=== PATIENT | female | born 1980 | race Caucasian/White ===

== ENCOUNTER 2020-10-13 08:32 | Emergency (ER) | payer OTHER, SELFPAY ==
--- NOTE | 2020-10-13 08:33 | ED.FALL ---
HPI - Fall General Chief Complaint: Fall Stated Complaint: fell on ice yesterday Time Seen by Provider: 10/13/20 08:33 Source: patient Mode of arrival: Ambulatory Limitations: no limitations History of Present Illness HPI Narrative: 39F nonsmoker with noncontributory medical history presents with a chief complaint of left side rib pain after a ground level fall yesterday. She was walking on the ice when she slipped and fell onto her left side. She denies any head, neck or back pain. She denies any loss of consciousness and has full recall. She felt a crunch in her lateral ribs and now has sharp and stabbing pain with motion, deep breath or use of her left arm. She denies any significant shortness of breath or hemoptysis. She has had no nausea, vomiting or diarrhea. She took a Tylenol with minimal relief MD complaint: fall Onset (ago): day(s) Fall from: standing Fall witnessed: no Place fall occurred: street Loss of consciousness: none Prolonged down time: no Symptoms prior to fall: none Context: tripped/slipped Location of injury: chest Severity: moderate Quality: sharp Related Data Previous Rx's Medication Instructions Recorded hydrocodone-acetaminophen 1 tab PO Q4-6H PRN #10 tab 10/13/20 Allergies Allergy/AdvReac Type Severity Reaction Status Date / Time codeine Allergy Unknown Verified 10/13/20 08:46 Review of Systems Constitutional Constitutional: Denies chills, Denies fatigue, Denies fever(s), Denies frequent falls, Denies lethargy and Denies weakness Eyes Eyes: Denies change in vision, Denies eye discharge, Denies irritation and Denies loss of vision ENT Ears, Nose, Mouth, and Throat: Denies change in voice, Denies dizziness, Denies neck pain, Denies sore throat and Denies throat swelling Cardiovascular Cardiovascular: Denies chest pain, Denies irregular heart rhythm, Denies lightheadedness, Denies palpitations, Denies dyspnea, Denies dyspnea on exertion and Denies orthopnea Comments: lateral chest wall pain Respiratory Respiratory: Denies cough, Denies dyspnea, Denies dyspnea on exertion and Denies wheezing Gastrointestinal Gastrointestinal: Denies abdominal pain, Denies change in bowel habits, Denies diarrhea, Denies nausea and Denies vomiting Musculoskeletal Musculoskeletal: Denies neck pain and Denies numbness Integumentary/Breasts Skin/Breast: Denies pruritus, Denies erythema, Denies rash and Denies wounds Neurologic Neurologic: Denies behavioral changes, Denies confusion, Denies dizziness, Denies frequent falls, Denies loss of vision, Denies numbness and Denies weakness Psychiatric Psychiatric: Denies anxiety, Denies behavioral changes, Denies confusion, Denies depression, Denies homicidal ideation and Denies suicidal ideation Endocrine Endocrine: Denies fatigue, Denies flushing and Denies palpitations Hematologic/Lymphatic Hematologic/Lymphatic: Denies easy bruising Allergic/Immunologic Allergic/Immunologic: Denies urticaria, Denies throat swelling and Denies wheezing Patient History Social History Smoking Status: Never smoker Smoking Status: Never smoker alcohol intake frequency: 0-2 drinks per day Substance Use Type: does not use Exam Narrative Exam Narrative: GENERAL: [39] year old patient appears stated age. Well-nourished, well-developed patient, in mild distress. GCS 15, tearful, anxious HEAD: Atraumatic. Normocephalic. EYES: Pupils equal round and reactive. No hyphema Extraocular motions intact. No scleral icterus. No injection or drainage. ENT: Nose without bleeding, purulent drainage. No nasal septal hematoma or hemotympanum Throat without erythema, tonsillar hypertrophy or exudate. Airway patent. NECK: Trachea midline. Non tender, no step-offs or crepitance CARDIOVASCULAR: Regular rate and rhythm without murmurs, gallops, or rubs. RESPIRATORY: Clear to auscultation. Breath sounds equal bilaterally. No wheezes, rales, or rhonchi. Severe tenderness to palpation of lateral ribs, no crepitance GASTROINTESTINAL: Abdomen soft, non-tender, nondistended. EXTREMITIES: No edema or joint tenderness. BACK: Nontender without deformity or crepitance. No flank tenderness. NEURO: AOx3. SKIN: No rash or erythema of visible areas Initial Vital Signs Initial Vital Signs: Vital Signs Temperature 97.8 F 10/13/20 08:41 Pulse Rate 98 H 10/13/20 08:41 Respiratory Rate 18 10/13/20 08:41 Blood Pressure 147/91 H 10/13/20 08:41 Pulse Oximetry 98 10/13/20 08:41 Course Orders Ordered: ED Orders 10/13/20 08:38 XR ribs LT min 3V w CXR1V Stat Discontinued Medications Ketorolac Tromethamine (Ketorolac 60 Mg/2 Ml Vial) 30 mg IM NOW ONE Stop: 10/13/20 08:43 Last Admin: 10/13/20 08:47 Dose: 30 mg Documented by: Vital Signs Vital signs: Vital Signs - 8 hr 10/13/20 08:41 Temperature 97.8 F Pulse Rate 98 H Respiratory Rate 18 Blood Pressure 147/91 H Pulse Oximetry 98 MDM - Fall Imaging Data Chest x-ray: Radiologist's Impression: [address] [id number] ReportSigned Patient: Alyssa Manzano LMR#: [id number]: 1980Acct:[id number]/Sex: 39 / FDate of Service: 10/13/20Loc: EDAccession Number: [id number] Procedure: XR ribs LT min 3V w CXR1V Ordering Provider: Sachin Esparza D.O. PROCEDURE: XR RIBS LT MIN 3V W CXR1V INDICATIONS: fall on ice with left lateral rib pain TECHNIQUE: 2 views of the left ribs were acquired, along with a single view chest. COMPARISON: None. FINDINGS: Surgical changes and devices: None. Bones and chest wall: No fractures or dislocations. No suspicious bony lesions. Overlying soft tissues appear unremarkable. Lungs and pleura: No pleural effusions or pneumothorax. Lungs appear clear. Mediastinum: Mediastinal contours appear normal. Heart size is normal. IMPRESSION: No fracture found, no pneumothorax identified. If unusual symptoms persist follow-up delayed plain films may be warranted. Initial plain film detection of nondisplaced rib fractures is relatively insensitive, and delayed plain films may detect fracture not previously identified. Dictated by: Jose Francisco Sparks M.D. on 10/13/2020 at 9:18 Approved by: Jose Francisco Sparks M.D. on 10/13/2020 at 9:21 Discharge Plan Departure Patient Disposition: Home Clinical Impression: Contusion of rib Qualifiers: Encounter type: initial encounter Laterality: left Qualified Code(s): S20.212A - Contusion of left front wall of thorax, initial encounter Instructions: How to Prevent Falls Activity Restrictions/Additional Instructions: *You have been diagnosed with [fall with left-sided rib contusion. No evidence of a fracture or puncture lung] *What to do: *Take medications as directed: Pain medication sent to [facility] at your request *Follow up with your primary care provider in 2-3 days, call for an appointment. Let them know you were seen in the Emergency Department and that we ask that you be seen in follow up *Return to ER if you should have any new, worsening or concerning symptoms, such as [increasing pain, shortness of breath or other bothersome symptoms Radiographic study has been interpreted by an emergency physician. The official diagnosis by radiology will be performed within the next 24 hours and should there be any change in outcome we will notify you of how to proceed. You have been prescribed narcotic medications. While on these medications you cannot drive or operate heavy machinery. Additionally you cannot sign legal documents or perform any duties such as this. 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 Please understand that we cannot provide further refills of narcotics or controlled substances through the ED and your pain management will need to be through your Primary Care Provider] Prescriptions: New hydrocodone-acetaminophen 5-325 mg tablet 1 tab PO Q4-6H PRN (Reason: pain) Qty: 10 RF: 0
--- NOTE | 2020-10-13 08:38 | DI.RAD.S_ITS ---
PROCEDURE: XR RIBS LT MIN 3V W CXR1V INDICATIONS: fall on ice with left lateral rib pain TECHNIQUE: 2 views of the left ribs were acquired, along with a single view chest. COMPARISON: None. FINDINGS: Surgical changes and devices: None. Bones and chest wall: No fractures or dislocations. No suspicious bony lesions. Overlying soft tissues appear unremarkable. Lungs and pleura: No pleural effusions or pneumothorax. Lungs appear clear. Mediastinum: Mediastinal contours appear normal. Heart size is normal. IMPRESSION: No fracture found, no pneumothorax identified. If unusual symptoms persist follow-up delayed plain films may be warranted. Initial plain film detection of nondisplaced rib fractures is relatively insensitive, and delayed plain films may detect fracture not previously identified. Dictated by: Jose Francisco Sparks M.D. on 10/13/2020 at 9:18 Approved by: Jose Francisco Sparks M.D. on 10/13/2020 at 9:21
[2020-10-13 08:41] VITALS: BP 147/91; PULSE 98; RESP 18; TEMP 36.6; O2SAT 98; BMI 30.7
[2020-10-13] MEDS: KETOROLAC 60 MG/2 ML VIAL 30 MG IM (08:47)
== END 2020-10-13 09:14 | disposition home or self-care (01) ==
LOC: ED 09:12
PROVIDERS: Emergency Provider Emergency Medicine
DX: S20.212A Contusion of left front wall of thorax, initial encounter (principal); W00.0XXA Fall on same level due to ice and snow, initial encounter
CPT/HCPCS: 71101; 96372; 99283; J1885

== ENCOUNTER → 2021-02-02 13:49 | Outpatient (CLI) | payer OTHER, SELFPAY ==
--- NOTE | 2021-02-02 13:50 | DI.US.S_ITS ---
ULTRASOUND OF RIGHT BREAST: 02/02/2021 CLINICAL: Diffuse right breast pain. [facility] and real-time ultrasound of the right breast were performed. Tatum scale images of the real-time examination were reviewed. There is a benign 0.5 cm x 0.8 cm x 0.3 cm oval cyst in the right breast at 11 o'clock middle depth 5 cm from the nipple. This correlates with mammography findings. Color flow imaging demonstrates that there is no vascularity present. IMPRESSION: BENIGN There is no sonographic evidence of malignancy. The 0.5 cm x 0.8 cm x 0.3 cm oval cyst in the right breast is benign. Return to annual mammogram screening schedule is recommended. Clinical follow up for breast rash and pain is recommended. Findings and recommendations were conveyed to the patient at time of exam. This exam was interpreted at Station ID: [id number]. Electronically Signed By: Perlita solano/:02/02/2021 15:44:26 letter sent: Normal Exam Ultrasound BI-RADS: 2 Benign
--- NOTE | 2021-02-02 13:50 | DI.MG.S_ITS ---
BILATERAL DIGITAL DIAGNOSTIC MAMMOGRAM 3D/2D: 02/02/2021 CLINICAL: Baseline exam. Bilateral breast pain and rash. No prior exams were available for comparison. The tissue of both breasts is heterogeneously dense. This may lower the sensitivity of mammography. There is a 9 mm oval equal density asymmetry with a circumscribed margin in the right breast at 11 o'clock anterior depth. No other significant masses, calcifications, or other findings are seen in either breast. Specifically, no finding to explain the patient's inferior bilateral breast rash or pain. IMPRESSION: INCOMPLETE: NEEDS ADDITIONAL IMAGING EVALUATION The 9 mm oval equal density asymmetry in the right breast is indeterminate. An ultrasound is recommended. This was performed immediately following this exam. There is no abnormality seen in either breast to correspond with the pain and rash the inferior aspect. Clinical follow up recommended. This exam was interpreted at Station ID: [id number]. NOTE: For mammograms, a report in lay terms will be sent to the patient. Approximately 15% of breast malignancies will not be visualized mammographically. In the management of a palpable breast mass, a negative mammogram must not discourage biopsy of a clinically suspicious lesion. Electronically Signed By: Perlita solano/:02/02/2021 15:22:07 ACR BI-RADS Category 0: Incomplete [id number]
== END ==
PROVIDERS: PCP Nurse Practitioner Family; Referring Provider Nurse Practitioner Family; Visit Provider Nurse Practitioner Family
DX: R92.8 Other abnormal and inconclusive findings on diagnostic imaging of breast (principal); N64.4 Mastodynia; N60.01 Solitary cyst of right breast; R21 Rash and other nonspecific skin eruption
CPT/HCPCS: 76642; 77066; G0279

== ENCOUNTER 2022-02-18 08:49 | Emergency (ER) | payer OTHER, SELFPAY ==
[2022-02-18 08:59] VITALS: BP 131/99; PULSE 105; RESP 22; TEMP 36.7; O2SAT 97; BMI 30.7
--- NOTE | 2022-02-18 09:42 | ED.SKABFB ---
HPI - Skin/Abscess/Foreign Bdy General Chief complaint: Skin/Abscess/Foreign Body Stated complaint: Left armpit pain- left breast swollen/painful Time Seen by Provider: 02/18/22 09:23 Source: patient Mode of arrival: Ambulatory Limitations: no limitations History of Present Illness HPI narrative: 41-year-old female. In August she had a breast reduction. She did have some complications afterwards consistent with nipple necrosis and also fat necrosis. She had an appointment earlier this week. She stated that everything seemed to be going okay although over the past 24 hours she had noticed some redness around her left breast and pain in her left armpit. No drainage. She sent a picture to her doctor last evening. She stated that he wrote a prescription for antibiotics and sent it to the pharmacy of her choice but she has not picked it up yet. She has had issues with dermatitis in the past and she stated that the doctor thought that that is what was going on which she is unsure. Related Data Previous Rx's Medication Instructions Recorded acyclovir 800 mg tablet 800 mg PO BID PRN cold sores #60 07/14/21 tabs clobetasol 0.05 % topical ointment 1 applic topical BID PRN contact 07/30/21 dermatitis #60 grams fluconazole 150 mg tablet 150 mg PO Q3D PRN yeast infection 07/30/21 (Diflucan) #6 tabs ketoconazole 2 % topical cream 1 applic topical BID #45 grams 07/30/21 tacrolimus 0.1 % topical ointment 1 applic topical BID #60 grams 07/30/21 Allergies Allergy/AdvReac Type Severity Reaction Status Date / Time codeine Allergy Unknown Verified 02/18/22 09:06 colophony Allergy Intermediate contact Uncoded 02/18/22 09:06 dermatitis Review of Systems Constitutional Constitutional: Denies fever(s) Integumentary/Breasts Skin/Breast: Reports system reviewed and no additional complaints, except as documented Hematologic/Lymphatic On Anticoagulants: No Allergic/Immunologic Allergic/Immunologic: Reports system reviewed and no additional complaints, except as documented Patient History Medical History Allergic contact dermatitis Encounter for wellness examination in adult (12/11/20) Intertrigo (02/2020) Social History Smoking Status: Never smoker Smoking Status: Never smoker alcohol intake frequency: a few times a month Substance Use Type: does not use Exam Initial Vital Signs Initial Vital Signs: Vital Signs Temperature 98.1 F 02/18/22 08:59 Pulse Rate 105 H 02/18/22 08:59 Respiratory Rate 22 02/18/22 08:59 Blood Pressure 131/99 H 02/18/22 08:59 Pulse Oximetry 97 02/18/22 08:59 Oxygen Delivery Method 02/18/22 08:59 Const General: cooperative, healthy appearing and comfortable Chest Other: Patient's left breast has redness consistent with cellulitis in the inferior aspect bilaterally. There is no drainage. No breaks in the skin. No induration/abscess felt. No nipple drainage. Skin Other: Large area of redness in the left inferior aspect of the breast consistent with cellulitis. There are no breaks in the skin. No drainage. No indication of fungal infection. Extrem Other: Lymphadenopathy noted in the left armpit. Course Vital Signs Vital signs: Vital Signs - 8 hr 02/18/22 08:59 Temperature 98.1 F Pulse Rate 105 H Respiratory Rate 22 Blood Pressure 131/99 H Pulse Oximetry 97 Oxygen Delivery Method Room Air MDM - Skin/Abscess/Foreign Bdy MDM Narrative Medical decision making narrative: Physical exam today is consistent with cellulitis/mastitis of the left breast. There is no nipple drainage. She is nontoxic appearing. I contacted the [facility] in [place] on [facility] [address]. There is a prescription for Keflex that was sent there by her surgeon. There is also prescription for Diflucan. The current Keflex prescription is only for 3 days. I called in a new prescription for Keflex of 500 mg 4 times a day for 7 days. She can continue the Diflucan as well. The prescription is under the patient's made a name of Cassy Manzano which is her name. Patient was instructed to contact her surgeon for follow-up. She expressed understanding and agreement. Discharge Plan Departure Patient Disposition: Home Clinical Impression: Mastitis Instructions: DI for Mastitis Activity Restrictions/Additional Instructions: There are 2 prescriptions at the [facility] in mouth for any. One of them is for Diflucan the other is for Keflex which is an antibiotic. Please take them as directed. I also recommend you contact the surgeon for a follow-up and return to the emergency department for any new or worsening symptoms. Prescriptions: No Action acyclovir 800 mg tablet 800 mg PO BID PRN (Reason: cold sores) Qty: 60 1RF clobetasol 0.05 % ointment 1 applic topical BID PRN (Reason: contact dermatitis) Qty: 60 1RF Rx Instructions: do not use on mucous membranes or face ketoconazole 2 % cream 1 applic topical BID Qty: 45 2RF fluconazole [Diflucan] 150 mg tablet 150 mg PO Q3D PRN (Reason: yeast infection) Qty: 6 0RF Rx Instructions: take one and then take another one 3 days later for yeast infection flare tacrolimus 0.1 % ointment 1 applic topical BID Qty: 60 0RF Rx Instructions: use on the affected area BID for up to 4 weeks or until clear, during flare Referrals: Tommie Trejo ARNP [Primary Care Provider] -
--- NOTE | 2022-02-18 10:12 | PC.NURSE ---
Lottie Vasquez Rn assisted Dr. Marshall and was in room with pt's exam.
== END 2022-02-18 10:14 | disposition home or self-care (01) ==
PROVIDERS: Emergency Provider Emergency Medicine; PCP Nurse Practitioner Family
DX: N61.0 Mastitis without abscess (principal)
CPT/HCPCS: 99281

== ENCOUNTER → 2022-05-05 14:18 | Outpatient (CLI) | payer OTHER, SELFPAY ==
--- NOTE | 2022-05-05 14:20 | DI.RAD.S_ITS ---
PROCEDURE: XR WRIST RT MIN 3V INDICATIONS: Right wrist injury TECHNIQUE: 4 views of the wrist were acquired. COMPARISON: None. FINDINGS: Bones: No fractures or dislocations. No suspicious bony lesions. Scaphoid view: Scaphoid is intact. Soft tissues: No suspicious soft tissue calcifications. IMPRESSION: No acute wrist fracture or dislocation. No gross soft tissue abnormalities. Dictated by: Jason Kilgore M.D. on 05/05/2022 at 14:52 Approved by: Jason Kilgore M.D. on 05/05/2022 at 14:52
== END ==
PROVIDERS: PCP Nurse Practitioner Family; Referring Provider Registered Nurse; Visit Provider Registered Nurse
DX: M25.531 Pain in right wrist (principal)
CPT/HCPCS: 73110

== ENCOUNTER → 2022-10-29 09:28 | Outpatient (CLI) | payer OTHER, SELFPAY ==
[2022-10-29 12:30] LABS: Urine N gonorrhoeae NOT DETECTED
[2022-10-29 12:35] LABS: Urine Chlamydia NOT DETECTED
== END ==
PROVIDERS: PCP Nurse Practitioner Family; Visit Provider Nurse Practitioner Family
DX: N89.8 Other specified noninflammatory disorders of vagina (principal); N94.9 Unspecified condition associated with female genital organs and menstrual cycle
CPT/HCPCS: 87086; 87210; 87491; 87591

== ENCOUNTER → 2022-10-29 10:23 | Outpatient (CLI) | payer OTHER, SELFPAY ==
[2022-10-29 12:34] LABS: Urine N gonorrhoeae NOT DETECTED
[2022-10-29 12:35] LABS: Urine Chlamydia NOT DETECTED
[2022-10-30 14:08] LABS: HSV 2 IGG AB < 0.91 index (0.00-0.90)
[2022-10-31 03:37] LABS: RPR Screen Non Reactive (Non Reactive)
[2022-11-01 16:30] LABS: Hepatitis B Surface Antigen NEGATIVE s/c (NEGATIVE)
[2022-11-01 16:35] LABS: HIV 1 & 2 Ab/Ag 4th Gen Combo NEGATIVE (NEGATIVE); Hep C Virus Ab w/Reflex Quant NEGATIVE s/c (NEGATIVE)
== END ==
PROVIDERS: PCP Nurse Practitioner Family; Referring Provider Nurse Practitioner Family; Visit Provider Nurse Practitioner Family
DX: N89.8 Other specified noninflammatory disorders of vagina (principal); N94.9 Unspecified condition associated with female genital organs and menstrual cycle
CPT/HCPCS: 36415; 86592; 86695; 86696; 86803; 87086; 87210; 87340; 87389; 87491; 87591

== ENCOUNTER → 2022-12-01 08:16 | Outpatient (CLI) | payer OTHER, SELFPAY ==
[2022-12-01 08:46] LABS: Alanine Aminotransferase 46 IU/L (<35); Alkaline Phosphatase 96 U/L (38-126); Aspartate Aminotransferase 34 IU/L (14-36); Bilirubin Total 0.9 mg/dL (0.2-1.3); Blood Urea Nitrogen 9 mg/dL (7-17); Calcium 8.5 mg/dL (8.4-10.2); Carbon Dioxide 23 mmol/L (22-32); Chloride 104 mmol/L (98-107); Cholesterol 220 mg/dL (140-199); Estimated Glomerular Filt Rate > 60 mL/min (>60); Globulin 3.9 g/dL (1.7-4.1); Glucose 120 mg/dL (70-100); HDL Cholesterol 49 mg/dL (40-60); HEMOLYSIS < 15 (0-50); LDL Cholesterol Calculated 140 mg/dL (<100); Potassium 3.9 mmol/L (3.4-5.1); Sodium 137 mmol/L (137-145); Total Protein 7.9 g/dL (6.3-8.2); Triglycerides 157 mg/dL (35-150)
[2022-12-01 09:42] LABS: Free T3, Triiodothyronine Free 4.07 pg/mL (2.77-5.27)
[2022-12-01 09:44] LABS: Free T4, Direct Thyroxine 0.95 ng/dL (0.78-2.19)
[2022-12-01 09:58] LABS: Thyroid Stimulating Hormone 1.83 uIU/mL (0.47-4.68)
[2022-12-02 06:24] LABS: Labcorp Hemoglobin (Hb) A1c 5.8 % (4.8-5.6)
[2022-12-16 15:51] LABS: Percent Free Testosterone 1.29 % (0.50-2.80); Testosterone Free 0.67 ng/dL (0.10-0.85)
== END ==
PROVIDERS: PCP Family Medicine; Referring Provider Family Medicine; Visit Provider Family Medicine
DX: Z13.220 Encounter for screening for lipoid disorders (principal); E34.9 Endocrine disorder, unspecified; R53.83 Other fatigue; R63.5 Abnormal weight gain
CPT/HCPCS: 36415; 80053; 80061; 83036; 84402; 84403; 84439; 84443; 84481

== ENCOUNTER → 2022-12-06 08:57 | Outpatient (CLI) | payer OTHER, SELFPAY ==
--- NOTE | 2022-12-06 08:59 | DI.US.S_ITS ---
PROCEDURE: US PELVIC COMPLETE INDICATIONS: irregular menses, hx of endo ablation, hx ovarian cysts TECHNIQUE: Real-time scanning was performed of the pelvic organs, with image documentation. Additional endovaginal scanning was necessary due to incomplete visualization of the adnexal and endometrial structures by transabdominal scanning. COMPARISON: US, US PELVIC+TRANSVAG[facility] LTD, 11/17/2016, 23:42. [facility], US, PELVIC COMPLETE, 10/06/2014, 17:43. FINDINGS: Uterus: Uterus is anteverted and normal in size at 7.5 x 3.6 x 4.7 cm. The myometrium is homogeneous. The endometrium measures 3.0 mm combined thickness. Small cystic area within the lower uterine segment adjacent to the internal cervical os of the cervix is present measuring 5 mm with internal rounded echogenic polypoid focus. No internal vascularity. Region of ill-defined hypoechogenicity within the anterior myometrial 1.6 cm which may represent a small intramural fibroid. Ovaries: Ovaries not visualized. No adnexal masses seen. Other: No pathologic free abdominal or pelvic fluid. IMPRESSION: 1. 5 mm cystic focus within the lower uterine segment near the internal cervical os which may represent a small complex nabothian cyst; however endometrial/endocervical polyp cannot be excluded. Recommend short-term follow-up ultrasound in 6 weeks to assess for temporal stability and/or resolution. 2. 1.6 cm possible intramural fibroid. 3. Ovaries are not identified. We strive to produce accurate, complete, and clear reports of imaging services. To assist us in improving patient care, this report was composed using standard report templates and voice recognition software. Therefore, it may contain abnormal punctuation, insertions and/or omissions. Occasional wrong-word or sound-alike substitutions may occur. Though we review the report and make efforts to correct it, we do recommend that the report be read carefully in proper context to recognize any text inaccuracies. Dictated by: Tavo ADAM Interpreted: Nehemiah Hardwick MD on 12/07/2022 at 14:08 Transcribed by: BRUCE on 12/07/2022 at 14:14 Approved by: Nehemiah Hardwick M.D. on 12/07/2022 at 16:36
== END ==
PROVIDERS: PCP Family Medicine; Referring Provider Family Medicine; Visit Provider Family Medicine
DX: N94.9 Unspecified condition associated with female genital organs and menstrual cycle (principal); N83.209 Unspecified ovarian cyst, unspecified side; Z98.890 Other specified postprocedural states
CPT/HCPCS: 76856

== ENCOUNTER → 2023-02-09 13:11 | Outpatient (CLI) | payer OTHER, SELFPAY | PROVIDERS: PCP Family Medicine; Visit Provider Family Medicine | DX: J02.9 Acute pharyngitis, unspecified (principal) | CPT/HCPCS: 87070 ==

== ENCOUNTER → 2023-03-23 11:57 | Outpatient (CLI) | payer OTHER, SELFPAY ==
--- NOTE | 2023-03-23 11:58 | DI.MG.S_ITS ---
BILATERAL DIGITAL DIAGNOSTIC MAMMOGRAM 3D/2D: 03/23/2023 CLINICAL: Pain in the right nipple. Comparison is made to exam dated: 02/02/2021 mammogram - [facility]. Both breasts are heterogeneously dense, which may obscure small masses (category c / 51-75% glandular tissue). There is an asymmetry in the right breast middle depth inferior region seen on the mediolateral view only. There are new grouped calcifications in the left breast central to the nipple middle depth. No other significant masses or calcifications are seen in either breast. IMPRESSION: INCOMPLETE: NEEDS ADDITIONAL IMAGING EVALUATION The asymmetry in the right breast middle depth inferior region seen on the mediolateral oblique view only is indeterminate. An ultrasound is recommended. The new grouped calcifications in the left breast central to the nipple middle depth are probably benign. 6 month mammogram recommended. There is no abnormality seen in the right breast to correspond with the pain in the sub-areolar depth, however, ultrasound is recommended. Patient recently had a 2nd reduction surgery. Post operative changes are present. Based on the Tyrer Cuzick model (a risk assessment model) the patient's lifetime risk is 7.9% and her 10 year risk is 1.2%. According to the ACR, ACS, and NCCN guidelines, an annual breast MRI exam along with mammogram is recommended if the patient's lifetime risk is 20% or greater. This exam was interpreted at Station ID: [id number]. NOTE: For mammograms, a report in lay terms will be sent to the patient. Approximately 15% of breast malignancies will not be visualized mammographically. In the management of a palpable breast mass, a negative mammogram must not discourage biopsy of a clinically suspicious lesion. Electronically Signed By: Mono Omalley M.D. lc/:03/23/2023 13:35:32 ACR BI-RADS Category 0: Incomplete 3340F
--- NOTE | 2023-03-23 11:58 | DI.US.S_ITS ---
PROCEDURE: BREAST RT LIMITED COMPARISON: [facility], BREAST RT LIMITED, 02/02/2021, 14:18. INDICATIONS: Right nipple pain FINDINGS: IMPRESSION: Dictated by: Mono Omalley M.D. on 03/23/2023 at 13:36 Approved by: Mono Omalley M.D. on 03/23/2023 at 13:41
--- NOTE | 2023-03-23 13:05 | DI.US.S_ITS ---
Patient Name: BLAIR JULIAN date: 1980 Sex: F Attending Physician: Allyn Indications: Date: 03/23/2023 13:41 At the request of: BRIDGET PINEDA Procedure: US breast RT limited ULTRASOUND OF RIGHT BREAST AND AXILLA: 03/23/2023 CLINICAL: Focal right breast pain. Comparison is made to exams dated: 03/23/2023 mammogram, 02/02/2021 ultrasound, and 02/02/2021 mammogram - [facility]. Ultrasound of the right breast axilla was performed. There is a 1.1 cm x 0.6 cm x 4 cm oval complex cystic-solid mass in the right breast central to the nipple anterior depth. This correlates with area of clinical concern. Color flow imaging demonstrates that there is vascularity present. There also is a possible 0.8 cm x 0.4 cm x 0.9 cm complicated cyst in the right breast at 5 o'clock middle depth 4 cm from the nipple. This correlates with mammography findings. No significant abnormalities were seen sonographically in the right axilla. IMPRESSION: SUSPICIOUS OF MALIGNANCY The 1.1 cm x 0.6 cm x 4 cm oval complex cystic-solid mass in the right breast central to the nipple anterior depth is suspicious of malignancy. An ultrasound guided biopsy is recommended. This correlates to focal pain. Patient recently had reduction surgery. Differential includes fat necrosis. The possible 0.8 cm x 0.4 cm x 0.9 cm complicated cyst in the right breast at 5 o'clock middle depth is probably benign. Follow-up mammogram and ultrasound in 6 months is recommended. This correlates with mammographic asymmetry. Continued Report - Page 2 of 2 Patient Name: BLAIR JULIAN date: 1980 Sex: F Attending Physician: Allyn Indications: Date: 03/23/2023 13:41 At the request of: BRIDGET PINEDA Procedure: US breast RT limited The left breast grouped calcifications are new from prior imaging, probably benign. A 6 month followup mammogram also recommended. This exam was interpreted at Station ID: [id number]. Electronically Signed By: Mono Omalley M.D. /:03/23/2023 13:41:19 letter sent: Biopsy Required Ultrasound BI-RADS: 4 Suspicious for malignancy
== END ==
PROVIDERS: PCP Family Medicine; Referring Provider Family Medicine; Visit Provider Family Medicine
DX: R92.8 Other abnormal and inconclusive findings on diagnostic imaging of breast (principal); R92.1 Mammographic calcification found on diagnostic imaging of breast; N63.15 Unspecified lump in the right breast, overlapping quadrants; N64.89 Other specified disorders of breast; N64.4 Mastodynia
CPT/HCPCS: 76642; 77066; G0279

== ENCOUNTER → 2023-03-28 10:39 | Outpatient (CLI) | payer OTHER, SELFPAY | PROVIDERS: PCP Family Medicine; Visit Provider Nurse Practitioner Family | DX: R30.0 Dysuria (principal); N89.8 Other specified noninflammatory disorders of vagina | CPT/HCPCS: 87086; 87210 ==

== ENCOUNTER → 2023-04-05 07:39 | Outpatient (CLI) | payer OTHER, SELFPAY ==
--- NOTE | 2023-04-05 | PATH_ITS ---
[facility] Accession Number: [id number] No. of containers..01 Tissue . 01 Material submitted: . breast - RIGHT BREAST MASS RETO . 01 Clinical history: . R92.8 . 01 Diagnosis: Right Breast, Image-Guided Core Biopsy: Breast tissue with old hemorrhage, mixed histiocytic, giant cell, and chronic inflammation, and organizing fat necrosis. Negative for significant atypia, duct hyperplasia, or neoplasia. MRV 04/06/2023 1331 Local . 01 Comment: The findings are not specific, but may represent previous trauma or biopsy site changes. . 01 Electronically signed: . Mariama Angela MD, Pathologist NPI- [id number] . 01 Gross description: . Received one formalin-filled container, labeled with the patient's name and right breast retro CTN. The specimen is received with a plastic filter in container, sample loose in container and consists of multiple yellow-perea to perea-maria pieces of tissue which range in size from 0.3 x 0.2 x 0.2 cm to 1.8 x 0.3 x 0.3 cm. The specimen is entirely submitted in one cassette. Possible collection date and time per requisition: 04/05/2023 at 9:12. Total fixation time: Approximately 18 hours. ([id number]) /FRR 04/06/2023 0331 Local . 01 Pathologist provided ICD-10: R92.8 . 01 CPT . 867293 Specimen Comment: A courtesy copy of this report has been sent to [facility] Performed at: 01 [facility] [address] [place] [address], [place], [place] [id number] MD London Lepe MD Phone: [phone]
--- NOTE | 2023-04-05 07:40 | DI.MG.S_ITS ---
UNILATERAL RIGHT DIGITAL DIAGNOSTIC MAMMOGRAM 3D/2D POST-EXCISIONAL BIOPSY: 04/05/2023 CLINICAL: Post clip. Comparison is made to exams dated: 03/23/2023 ultrasound, 03/23/2023 mammogram, 02/02/2021 ultrasound, and 02/02/2021 mammogram - [facility]. The right breast is heterogeneously dense, which may obscure small masses (category c / 51-75% glandular tissue). There is a marker clip in the appropriate position in the right breast at 12 o'clock in the retroareolar region. This marker clip placement is at the biopsy site. IMPRESSION: POST PROCEDURE MAMMOGRAM FOR MARKER PLACEMENT There was a successful marker clip placement in the right breast in the retroareolar region. Future imaging is recommended as follows: 09/23/2023 mammogram and an ultrasound. Based on the Tyrer Cuzick model (a risk assessment model) the patient's lifetime risk is 7.9% and her 10 year risk is 1.2%. According to the ACR, ACS, and NCCN guidelines, an annual breast MRI exam along with mammogram is recommended if the patient's lifetime risk is 20% or greater. This exam was interpreted at Station ID: [id number]. NOTE: For mammograms, a report in lay terms will be sent to the patient. Approximately 15% of breast malignancies will not be visualized mammographically. In the management of a palpable breast mass, a negative mammogram must not discourage biopsy of a clinically suspicious lesion. Electronically Signed By: Jason Kilgore M.D. jl/:04/05/2023 11:18:57 ACR BI-RADS Category Post-procedure mammogram for marker placement
--- NOTE | 2023-04-05 07:40 | DI.US.S_ITS ---
ULTRASOUND GUIDED BIOPSY RIGHT BREAST USING VACUUM DEVICE WITH MARKING DEVICE INSERTED AND POST DIGITAL MAMMOGRAPHIC IMAGIN04/05/2023 CLINICAL: Right breast mass. PATIENT CONSENT: Risks (minor bleeding, infection, vasovagal reaction and repeat procedure), benefits and alternatives were explained to the patient and written informed consent was obtained. Correlation is made to exams dated: 04/05/2023 mammogram, 03/23/2023 ultrasound, 03/23/2023 mammogram, 02/02/2021 ultrasound, and 02/02/2021 mammogram - [facility]. An ultrasound guided biopsy using real-time ultrasound was performed for the circumscribed nodule located in the right breast at 12 o'clock anterior depth. This was described on the previous ultrasound report. The skin was prepped in the usual manner. Local anesthetic was administered to the access site. A small incision was made in the breast. The abnormality was approached from the lateral aspect. A biopsy needle was placed adjacent to the abnormality under ultrasound guidance. Once the needle was documented to be in the correct location, four specimens were obtained using the Mammotome biopsy system. The patient received additional local anesthetic during the procedure. A clip was inserted into the biopsy cavity. A skin adhesive was applied to the access site. Post procedure digital mammographic imaging demonstrates the location device at the targeted area. The specimens were sent to the laboratory for pathological analysis. IMPRESSION: ULTRASOUND GUIDED BIOPSY BENIGN Ultrasound guided biopsy of the nodule in the right breast at 12 o'clock anterior depth was successful with no apparent post procedure complications. Pathology indicates benign fat necrosis (FN) and chronic inflammation. Pathology results are concordant with imaging findings. Return to annual mammogram screening schedule is recommended. This exam was interpreted at Station ID: [id number]. Jason gould,acr/:04/11/2023 16:14:44
== END ==
PROVIDERS: PCP Family Medicine; Referring Provider Family Medicine; Visit Provider Family Medicine
DX: N64.1 Fat necrosis of breast (principal); N61.0 Mastitis without abscess
CPT/HCPCS: 19083; 77065

== ENCOUNTER → 2023-09-28 08:27 | Outpatient (CLI) | payer OTHER, SELFPAY ==
[2023-09-28 08:53] LABS: Add Manual Diff / Slide Review NO; Basophils Absolute Auto 0 /uL (0-100); Basophils Percent Auto 0.4 % (0-2); Eosinophils Absolute Auto 200 /uL (0-450); Eosinophils Percent Auto 2.6 % (2-4); Hematocrit 43.8 % (36-46); Hemoglobin 14.8 g/dL (12.0-16.0); Lymphocytes Absolute Auto 2300 /uL (1100-4500); Lymphocytes Percent Auto 29.1 % (25-40); Mean Corpuscular HGB Conc 33.9 % (30-36); Mean Corpuscular Volume 91.4 fL (80-100); Monocytes Absolute Auto 600 /uL (0-900); Monocytes Percent Auto 7.6 % (3-14); Neutrophils Absolute Auto 4800 /uL (1500-7000); Neutrophils Percent Auto 60.3 % (50-75); Platelet Count 307 X10^3/uL (150-400); Red Blood Cell Count 4.79 X10^6/uL (4.0-5.2); White Blood Cell Count 7.9 X10^3/uL (4.5-11.0)
[2023-09-28 09:03] LABS: Hemoglobin A1C% w Est Avg Glu 5.4 % (4.0-6.0)
[2023-09-28 09:08] LABS: HEMOLYSIS < 15 (0-50); Iron 107 ug/dL (37-170)
[2023-09-28 09:09] LABS: Alanine Aminotransferase 38 IU/L (<35); Albumin 4.1 g/dL (3.5-5.0); Albumin Globulin Ratio 1.1 (1.0-2.8); Alkaline Phosphatase 79 U/L (38-126); Aspartate Aminotransferase 35 IU/L (14-36); Bilirubin Total 0.6 mg/dL (0.2-1.3); Blood Urea Nitrogen 11 mg/dL (7-17); Calcium 9.2 mg/dL (8.4-10.2); Carbon Dioxide 25 mmol/L (22-32); Chloride 106 mmol/L (98-107); Estimated Glomerular Filt Rate > 60 mL/min (>60); Globulin 3.8 g/dL (1.7-4.1); Glucose 114 mg/dL (70-100); HEMOLYSIS < 15 (0-50); Potassium 3.9 mmol/L (3.4-5.1); Sodium 139 mmol/L (137-145); Total Protein 7.9 g/dL (6.3-8.2)
[2023-09-28 09:13] LABS: Cholesterol 221 mg/dL (140-199); HDL Cholesterol 49 mg/dL (40-60); LDL Cholesterol Calculated 152 mg/dL (<100); Triglycerides 99 mg/dL (35-150)
[2023-09-28 09:17] LABS: High Sensitivity CRP - Cardiac 10.2 mg/L (1.0-3.0)
[2023-09-28 09:19] LABS: Percent Iron Saturation 39 % (15-50); Total Iron Binding Capacity 272 ug/dL (265-497); Transferrin 233 mg/dL (206-381)
[2023-09-28 09:26] LABS: Free T4, Direct Thyroxine 0.89 ng/dL (0.78-2.19)
[2023-09-28 09:39] LABS: Thyroid Stimulating Hormone 0.928 uIU/mL (0.47-4.68)
[2023-09-28 09:43] LABS: Ferritin 107 ng/mL (6-137)
[2023-09-30 14:46] LABS: Insulin Level Total 18.5 uIU/mL (2.6-24.9)
[2023-10-03 22:55] LABS: Anti Mullerian Hormone 3.94 ng/mL (.)
[2023-10-09 11:08] LABS: Magnesium, RBC 5.4 mg/dL (3.7-7.0)
== END ==
PROVIDERS: PCP Family Medicine; Referring Provider Family Medicine; Visit Provider Family Medicine
DX: E28.2 Polycystic ovarian syndrome (principal)
CPT/HCPCS: 36415; 80053; 80061; 82306; 82397; 82728; 83036; 83525; 83540; 83550; 83735; 84439; 84443; 84481; 85025; 86140

== ENCOUNTER → 2023-10-05 09:55 | Outpatient (CLI) | payer OTHER, SELFPAY ==
--- NOTE | 2023-10-05 | DI.MG.S_ITS ---
BILATERAL DIGITAL DIAGNOSTIC MAMMOGRAM 3D/2D: 10/05/2023 CLINICAL: Short term follow up for bilateral breasts. Comparison is made to exams dated: 04/05/2023 mammogram, 03/23/2023 mammogram, and 02/02/2021 mammogram - [facility]. Both breasts are heterogeneously dense, which may obscure small masses (category c / 51-75% glandular tissue). The asymmetry in the right breast anterior depth inferior region previously seen on the mediolateral oblique view only is not seen in additional views. There are stable grouped dystrophic calcifications in the left breast central to the nipple middle depth. No other significant masses or calcifications are seen in either breast. IMPRESSION: INCOMPLETE: NEEDS ADDITIONAL IMAGING EVALUATION The previously seen asymmetry in the right breast anterior depth inferior region seen on the mediolateral oblique view only is no longer seen and is indeterminate. A right breast ultrasounds is recommended and will be performed following this exam. The stable grouped dystrophic calcifications in the left breast central to the nipple middle depth are probably benign. A follow-up left mammogram in 6 months is recommended. Based on the Tyrer Cuzick model (a risk assessment model) the patient's lifetime risk is 7.9% and her 10 year risk is 1.2%. According to the ACR, ACS, and NCCN guidelines, an annual breast MRI exam along with mammogram is recommended if the patient's lifetime risk is 20% or greater. This exam was interpreted at Station ID: [id number]. NOTE: For mammograms, a report in lay terms will be sent to the patient. Approximately 15% of breast malignancies will not be visualized mammographically. In the management of a palpable breast mass, a negative mammogram must not discourage biopsy of a clinically suspicious lesion. Electronically Signed By: Page burroughs/:10/05/2023 15:51:20 Entry: - 10/05/2023 15:51:20 ACR BI-RADS Category 0: Incomplete 3340F
--- NOTE | 2023-10-05 09:55 | DI.US.S_ITS ---
ULTRASOUND OF RIGHT BREAST: 10/05/2023 CLINICAL: Patient returns today to evaluate a focal asymmetry in the right breast. Comparison is made to exams dated: 10/05/2023 mammogram, 04/05/2023 mammogram, 03/23/2023 ultrasound, 03/23/2023 mammogram, 02/02/2021 ultrasound, and 02/02/2021 mammogram - [facility]. Color flow and real-time ultrasound of the right breast were performed on the areas of interest. There is a stable complicated cyst in the right breast at 5 o'clock middle depth 4 cm from the nipple. This correlates with mammography findings. IMPRESSION: PROBABLY BENIGN The complicated cyst in the right breast is probably benign. Follow-up mammogram and ultrasound in 6 months is recommended. A follow-up mammogram of the left breast in 6 months is recommended as well to demonstrate stability of grouped calcifications. This exam was interpreted at Station ID: [id number]. Electronically Signed By: Page burroughs/:10/05/2023 11:49:22 letter sent: Followup Recommended Ultrasound BI-RADS: 3 Probably benign
== END ==
LOC: MAMMO 09:55
PROVIDERS: PCP Family Medicine; Referring Provider Family Medicine; Visit Provider Family Medicine
DX: R68.89 Other general symptoms and signs (principal); N64.89 Other specified disorders of breast; N60.01 Solitary cyst of right breast
CPT/HCPCS: 76642; 77065; 77066; G0279

== ENCOUNTER 2023-11-09 09:28 | Emergency (ER) | payer OTHER, SELFPAY ==
[2023-11-09 09:35] VITALS: BP 155/103; PULSE 104; RESP 20; TEMP 37; O2SAT 99; BMI 29.0
[2023-11-09 09:39] VITALS: PULSE 105; O2SAT 100
--- NOTE | 2023-11-09 09:41 | ED.ALLEREA ---
HPI - Allergic Reaction General Chief complaint: Allergic Reaction Stated complaint: allergic reaction Time Seen by Provider: 11/09/23 09:34 Source: patient Mode of arrival: Ambulatory History of Present Illness HPI narrative: 42-year-old female who presents with complaint of dermatitis. Patient states she was seen yesterday by dermatology was prescribed oral prednisone, topical clobetasol and topical antibiotic but has not been able to fill them at the pharmacy yet today. She states she was so uncomfortable that she presents for treatment. She states she is felt warm this week. 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 She states she was exposed to some sticks and that is what caused this. She did see the environmental economist yesterday and was told she had a contact dermatitis. She has not started any of these medications. She his quite itchy. She denies any oral involvement such as lips or tongue, no swelling of her face. No tightness in her chest. No vomiting or nausea. No diarrhea. There has not been any blistering but she has quite a bit of erythematous, raised lesions. Patient states prescriptions have been sent but pharmacy had not had them available yet. No tobacco, occasional alcohol, no recreational drugs. Related Data Home Medications Medication Instructions Recorded Confirmed minoxidil 2.5 mg tablet mg PO 09/28/23 09/28/23 spironolactone 50 mg tablet 50 mg PO DAILY 09/28/23 09/28/23 Previous Rx's Medication Instructions Recorded metformin 500 mg tablet 250 mg (1/2 x 500 mg) PO DAILY #30 12/13/22 tabs acyclovir 400 mg tablet 400 mg PO DAILY PRN cold sore #90 04/12/23 tabs buspirone 10 mg tablet 10 mg PO ONCE PRN panic #20 tabs 04/12/23 propranolol 40 mg tablet 40 mg PO ONCE PRN panic #20 tabs 04/12/23 ketoconazole 2 % topical cream 1 applic topical BID #45 grams 11/04/23 triamcinolone acetonide 0.5 % 1 applic topical BID PRN contact 11/07/23 topical ointment dermatitis #15 grams Allergies Allergy/AdvReac Type Severity Reaction Status Date / Time codeine Allergy Severe hives, Verified 09/28/23 08:15 itching shrimp Allergy Intermediate tingling Verified 09/28/23 08:15 mouth colophony Allergy Severe contact Uncoded 11/07/23 08:43 dermatitis Review of Systems Review of Systems ROS Unobtainable: All systems reviewed & are unremarkable except as noted in HPI and below Patient History Medical History Fat necrosis of breast Obesity, Class I, BMI 30-34.9 Abdominal pain, RUQ Right wrist pain Encounter for wellness examination in adult (12/11/20) Allergic contact dermatitis Intertrigo (02/2020) Surgical History Status post breast reduction Social History Smoking Status: Never smoker alcohol intake: current substance use type: does not use Smoking Status: Never smoker alcohol intake frequency: a few times a month Substance Use Type: does not use Exam Narrative Exam Narrative: GEN: well nourished, well appearing female, alert and oriented x 3, patient does appear uncomfortable. She prefers to stand during evaluation. HEENT: Atraumatic, pupils are equal round reactive to light, extraocular movements are intact, nares are clear. Throat is clear without any exudates, erythema, tonsillar enlargement or uvular deviation HEART: Regular rate and rhythm without murmur, clicks, rubs. LUNGS:Lungs clear to auscultation, no wheezes, rales, crackles, chest moves symmetrically ABD:bowel sounds normal, soft, non-tender, no guarding, rebound, rigidity, no masses noted, no hepatosplenomegaly MSCL: Non-tender, no muscle atrophy, muscles strength 5/5 upper and lower extremities, full range of motion, normal gait NEURO:CN 2-12 intact, sensation normal SKIN: Patient has erythematous raised papular rash into plaques on bilateral forearms and chest, no blistering. Patient has some excoriations from itching. Initial Vital Signs Initial Vital Signs: Vital Signs Temperature 98.6 F 11/09/23 09:35 Pulse Rate 104 H 11/09/23 09:35 Respiratory Rate 20 11/09/23 09:35 Blood Pressure 155/103 H 11/09/23 09:35 Pulse Oximetry 99 11/09/23 09:35 Oxygen Delivery Method Room Air 11/09/23 09:35 Course Orders Ordered: Discontinued Medications Diphenhydramine HCl (Diphenhydramine 25 Mg Tablet) 50 mg PO NOW ONE Stop: 11/09/23 09:41 Last Admin: 11/09/23 09:47 Dose: 50 mg Documented By: RUY Famotidine (Famotidine 20 Mg Tablet) 20 mg PO NOW ONE Stop: 11/09/23 09:42 Last Admin: 11/09/23 09:48 Dose: 20 mg Documented By: RUY Prednisone (Prednisone 20 Mg Tablet) 60 mg PO NOW ONE Stop: 11/09/23 09:41 Last Admin: 11/09/23 09:48 Dose: 60 mg Documented By: RUY Vital Signs Vital signs: Vital Signs - 8 hr 11/09/23 09:35 Temperature 98.6 F Pulse Rate 104 H Respiratory Rate 20 Blood Pressure 155/103 H Pulse Oximetry 99 Oxygen Delivery Method Room Air MDM - Allergic Reaction MDM Narrative Medical decision making narrative: 42-year-old female with what does appear to be likely a contact dermatitis. She saw Dermatology yesterday and was given this diagnosis as well after exposure. Patient has been prescribed oral prednisone topical clobetasol and she states some kind of antibiotic topical ointment or wash. She has not filled these yet today they were sent yesterday. She became quite uncomfortable and states it has been worsening since yesterday so presents to the ED. patient does not have any other systemic involvement making me concerning for anaphylaxis. This has been present for approximately a week slowly worsening. We will give dose of oral prednisone, gave Benadryl here in the department as well as Pepcid for histamine blockage. Discussed with patient sounds like her prescription should be available today and to fill these and start them. We did discuss if the clobetasol is not available she can try topical hydrocortisone in the interim although it will not be a strong. Discharge Plan Departure Patient Disposition: Home Clinical Impression: Dermatitis Activity Restrictions/Additional Instructions: Follow up as needed. I hope you feel improved soon. You may take Benadryl 1-2 tablets every 6 hours as needed for itching. Continue with the prescriptions from your environmental economist including the prednisone, clobetasol and other topical medication. Please return if you are having swelling of your lips, tongue or airway, if you are having any fevers greater than 100.4 F, chest pain or tightness, increased shortness of breath, vomiting, diarrhea or large blisters that are sloughing off for other changes. Prescriptions: No Action ketoconazole 2 % cream 1 applic topical BID Qty: 45 2RF triamcinolone acetonide 0.5 % ointment 1 applic topical BID PRN (Reason: contact dermatitis) Qty: 15 2RF metformin 500 mg tablet 250 mg PO DAILY Qty: 30 0RF Hold Instructions: pt elected not to start, may still Rx Instructions: take with largest meal of day acyclovir 400 mg tablet 400 mg PO DAILY PRN (Reason: cold sore) Qty: 90 2RF Rx Instructions: acyclovir 400mg daily for prevention, increase to 3x/d for treatment if cold sore develops until resolution propranolol 40 mg tablet 40 mg PO ONCE PRN (Reason: panic) Qty: 20 0RF buspirone 10 mg tablet 10 mg PO ONCE PRN (Reason: panic) Qty: 20 0RF Hold Instructions: managing w/o minoxidil 2.5 mg tablet PO spironolactone 50 mg tablet 50 mg PO DAILY Referrals: Akila Gruber DO [Primary Care Provider] - Stand Alone Forms: Patient Portal/API
[2023-11-09] MEDS: diphenhydrAMINE 25 MG TABLET 50 MG PO (09:47)
[2023-11-09] MEDS: predniSONE 20 MG TABLET 60 MG PO (09:48)
[2023-11-09] MEDS: FAMOTIDINE 20 MG TABLET PO (09:48)
--- NOTE | 2023-11-09 09:56 | PC.NURSE ---
Pt pacing in room, anxious. I brought her medications and again explained the benefit to taking them. Pt states hopefully im not allergic to any of them. Pt asked what are we doing after this in response to taking the medications. I educated patient about doctor's plan to pickup OTC hydrocortizone. Pt took medications with water.
[2023-11-09 10:05] VITALS: BP 139/92; PULSE 104; RESP 18
== END 2023-11-09 10:05 | disposition home or self-care (01) ==
PROVIDERS: Emergency Provider Emergency Medicine; PCP Family Medicine
DX: L30.9 Dermatitis, unspecified (principal)
CPT/HCPCS: 99283; A9270

== ENCOUNTER → 2024-01-27 14:34 | Outpatient (CLI) | payer OTHER, SELFPAY ==
[2024-01-27 15:52] LABS: Hemoglobin A1C% w Est Avg Glu 5.4 % (4.0-6.0)
[2024-01-27 17:06] LABS: High Sensitivity CRP - Cardiac 9.5 mg/L (1.0-3.0)
== END ==
PROVIDERS: PCP Family Medicine; Referring Provider Family Medicine; Visit Provider Family Medicine
DX: E55.9 Vitamin D deficiency, unspecified (principal); R73.03 Prediabetes; E28.2 Polycystic ovarian syndrome
CPT/HCPCS: 36415; 82306; 82397; 82627; 82670; 82677; 82679; 83036; 83498; 84144; 84402; 84403; 84999; 86140

== ENCOUNTER → 2024-04-06 08:42 | Outpatient (CLI) | payer OTHER, SELFPAY ==
--- NOTE | 2024-04-06 | DI.MG.S_ITS ---
BILATERAL DIGITAL DIAGNOSTIC MAMMOGRAM 3D/2D SHORT-TERM FOLLOW-UP: 04/06/2024 CLINICAL: Patient returns for a 6 month follow up of bilateral breasts. Comparison is made to exams dated: 10/05/2023 mammogram, 03/23/2023 mammogram, 02/02/2021 mammogram, 10/05/2023 ultrasound, and 03/23/2023 ultrasound - [facility]. Both breasts are heterogeneously dense, which may obscure small masses (category c / 51-75% glandular tissue). There are benign post operative findings in both breasts. There is an asymmetry in the right breast anterior depth inferior region seen on the mediolateral oblique view only. This is less prominent. There are stable grouped dystrophic calcifications in the left breast central to the nipple middle depth. No other significant masses or calcifications are seen in either breast. IMPRESSION: INCOMPLETE: NEEDS ADDITIONAL IMAGING EVALUATION The asymmetry in the right breast anterior depth inferior region seen on the mediolateral oblique view only is indeterminate. An ultrasound is recommended. The stable grouped dystrophic calcifications in the left breast central to the nipple middle depth are probably benign. A follow-up left mammogram in 6 months is recommended. Based on the Tyrer Cuzick model (a risk assessment model) the patient's lifetime risk is 7.8% and her 10 year risk is 1.3%. According to the ACR, ACS, and NCCN guidelines, an annual breast MRI exam along with mammogram is recommended if the patient's lifetime risk is 20% or greater. This exam was interpreted at Station ID: Unknown. NOTE: For mammograms, a report in lay terms will be sent to the patient. Approximately 15% of breast malignancies will not be visualized mammographically. In the management of a palpable breast mass, a negative mammogram must not discourage biopsy of a clinically suspicious lesion. Electronically Signed By: Zane Keys M.D. ar/:04/06/2024 16:05:00 Entry: - 04/10/2024 11:18:34 ACR BI-RADS Category 0: Incomplete 3340F
--- NOTE | 2024-04-06 | DI.US.S_ITS ---
LIMITED ULTRASOUND OF RIGHT BREAST: 04/06/2024 CLINICAL: Patient returns for 6 month follow up on right breast. Comparison is made to exams dated: 04/06/2024 mammogram, 10/05/2023 ultrasound, 10/05/2023 mammogram, 04/05/2023 ultrasound biopsy, 04/05/2023 mammogram, and 03/23/2023 ultrasound - [facility]. Color flow and real-time ultrasound of the right breast 5 o'clock region were performed. Tatum scale images of the real-time examination were reviewed. There is a 1.1 cm x 1 cm x 0.5 cm oval complicated cyst in the right breast at 5 o'clock middle depth 4 cm from the nipple. This oval complicated cyst is of mixed echogenicity with posterior acoustic enhancement. This abnormality is not significantly changed and correlates with mammography findings. There are related micro calcifications. IMPRESSION: PROBABLY BENIGN The 1.1 cm x 1 cm x 0.5 cm oval complicated cyst in the right breast has a differential diagnosis of a complicated cyst or an oil cyst and is probably benign. A follow-up mammogram and an ultrasound in 6 months is recommended to demonstrate stability. This exam was interpreted at Station ID: [id number]. Electronically Signed By: Zane rainey/olga lidia:04/06/2024 16:08:31 letter sent: Followup Recommended Ultrasound BI-RADS: 3 Probably benign
== END ==
LOC: MAMMO 08:43
PROVIDERS: PCP Family Medicine; Referring Provider Family Medicine; Visit Provider Family Medicine
DX: R92.8 Other abnormal and inconclusive findings on diagnostic imaging of breast (principal); N60.01 Solitary cyst of right breast; R92.333 Mammographic heterogeneous density, bilateral breasts; R92.1 Mammographic calcification found on diagnostic imaging of breast
CPT/HCPCS: 76642; 77066; G0279

== ENCOUNTER → 2024-09-20 16:07 | Outpatient (CLI) | payer OTHER, SELFPAY ==
[2024-09-20 19:22] LABS: Influenza A - CEPHEID Flu A NEGATIVE (NEGATIVE); Influenza B - CEPHEID Flu B NEGATIVE (NEGATIVE); Respiratory Syncytial Virus Negative (Negative)
[2024-09-20 19:33] LABS: COVID-19 CEPHEID 4-PLEX PCR POSITIVE (Negative)
== END ==
PROVIDERS: PCP Family Medicine; Visit Provider Family Medicine
DX: R50.9 Fever, unspecified (principal); R05.9 Cough, unspecified
CPT/HCPCS: 0241U

== ENCOUNTER → 2024-10-08 | Outpatient (CLI) | payer OTHER, SELFPAY ==
--- NOTE | 2024-10-08 08:45 | DI.US.S_ITS ---
LIMITED ULTRASOUND OF RIGHT BREAST: 10/08/2024 CLINICAL: 6 month follow-up of complicated cyst. Comparison is made to exams dated: 04/06/2024 ultrasound, 10/08/2024 mammogram, 04/06/2024 mammogram, 10/05/2023 ultrasound, 10/05/2023 mammogram, and 04/05/2023 ultrasound [facility]. Color flow and real-time ultrasound of the right breast 5 o'clock region were performed. Tatum scale images of the real-time examination were reviewed. No significant abnormalities were seen sonographically in the right breast. Previously described possible complicated cyst versus fat necrosis in region of prior reduction mammoplasty is not reproduced. No new or other suspicious sonographic abnormalities seen in the right breast lower inner quadrant. IMPRESSION: BENIGN No sonographic abnormalities seen. Previously described possible complicated cyst versus fat necrosis at 5 o'clock 4cm from the nipple is not visualized and consistent with a benign process as the right breast asymmetry is also not definitively seen on today's mammogram. There is no sonographic evidence of malignancy. A 1 year screening mammogram is recommended. Findings and recommendations were conveyed to the patient during today's evaluation. This exam was interpreted at Station ID: [id number]. Electronically Signed By: Saulo Muhammad M.D. aty/:10/08/2024 10:34:26 letter sent: Normal Exam ACR BI-RADS Category 2: Benign
--- NOTE | 2024-10-08 08:45 | DI.MG.S_ITS ---
BILATERAL DIGITAL DIAGNOSTIC MAMMOGRAM 3D/2D SHORT-TERM FOLLOW-UP: 10/08/2024 CLINICAL: Patient returns for a 24 month follow up of bilateral breasts. Comparison is made to exams dated: 04/06/2024 mammogram, 10/05/2023 mammogram, 04/05/2023 mammogram, 03/23/2023 mammogram, and 02/02/2021 mammogram - [facility]. The breasts are heterogeneously dense, which may obscure small masses (category c / 51-75% glandular tissue). There are stable post operative findings in both breasts. The previously described asymmetry in the right breast anterior depth inferior region seen on the mediolateral oblique view only is not confirmed in additional views which overall appears less prominent and decreased in size. There are grouped dystrophic calcifications in the left breast central to the nipple middle depth which are more prominent and rim-calcified. No other significant masses or calcifications are seen in either breast. IMPRESSION: INCOMPLETE: NEED ADDITIONAL IMAGING EVALUATION The asymmetry in the right breast anterior depth inferior region seen on the mediolateral oblique view only is indeterminate. An ultrasound is recommended for further evaluation and is scheduled to immediately follow this examination. The grouped dystrophic calcifications in the left breast central to the nipple middle depth are consistent with dystrophic calcifications related to fat necrosis and are benign. Based on the Tyrer Cuzick model (a risk assessment model) the patient's lifetime risk is 7.8% and her 10 year risk is 1.3%. According to the ACR, ACS, and NCCN guidelines, an annual breast MRI exam along with mammogram is recommended if the patient's lifetime risk is 20% or greater. This exam was interpreted at Station ID: [id number]. NOTE: For mammograms, a report in lay terms will be sent to the patient. Approximately 15% of breast malignancies will not be visualized mammographically. In the management of a palpable breast mass, a negative mammogram must not discourage biopsy of a clinically suspicious lesion. Electronically Signed By: Saulo Muhammad M.D. aty/:10/08/2024 10:07:25 letter sent: Additional Imaging Needed ACR BI-RADS Category 0: Incomplete: Need Additional Imaging Evaluation
== END ==
PROVIDERS: PCP Family Medicine; Referring Provider Family Medicine; Visit Provider Family Medicine
DX: R92.8 Other abnormal and inconclusive findings on diagnostic imaging of breast (principal); R92.1 Mammographic calcification found on diagnostic imaging of breast; R92.333 Mammographic heterogeneous density, bilateral breasts
CPT/HCPCS: 76642; 77066; G0279

== ENCOUNTER → 2024-10-18 09:02 | Outpatient (CLI) | payer OTHER, SELFPAY ==
[2024-10-18 09:57] LABS: Hemoglobin A1C% w Est Avg Glu 5.3 % (4.0-6.0)
[2024-10-18 10:02] LABS: Add Manual Diff / Slide Review NO; Basophils Absolute Auto 100 /uL (0-100); Basophils Percent Auto 0.6 % (0-2); Eosinophils Absolute Auto 200 /uL (0-450); Eosinophils Percent Auto 2.2 % (2-4); Hematocrit 44.3 % (36-46); Lymphocytes Absolute Auto 2200 /uL (1100-4500); Lymphocytes Percent Auto 24.2 % (25-40); Mean Corpuscular HGB Conc 33.8 % (30-36); Mean Corpuscular Hemoglobin 31.2 PG (26-34); Mean Corpuscular Volume 92.3 fL (80-100); Monocytes Absolute Auto 600 /uL (0-900); Neutrophils Absolute Auto 5900 /uL (1500-7000); Platelet Count 291 X10^3/uL (150-400)
[2024-10-18 10:07] LABS: Alanine Aminotransferase 33 IU/L (<35); Albumin 4.3 g/dL (3.5-5.0); Albumin Globulin Ratio 1.3 (1.0-2.8); Alkaline Phosphatase 85 U/L (38-126); Aspartate Aminotransferase 29 IU/L (14-36); BUN Creatinine Ratio 14.3 (6-22); Bilirubin Total 0.6 mg/dL (0.2-1.3); Blood Urea Nitrogen 10 mg/dL (7-17); Carbon Dioxide 26 mmol/L (22-32); Chloride 104 mmol/L (98-107); Cholesterol 243 mg/dL (140-199); Estimated Glomerular Filt Rate > 60 mL/min (>60); Globulin 3.3 g/dL (1.7-4.1); Glucose 113 mg/dL (70-100); HDL Cholesterol 54 mg/dL (40-60); HEMOLYSIS < 15 (0-50); LDL Cholesterol Calculated 162 mg/dL (<100); Potassium 4.1 mmol/L (3.4-5.1); Sodium 139 mmol/L (137-145); Total Protein 7.6 g/dL (6.3-8.2); Triglycerides 134 mg/dL (35-150)
[2024-10-18 10:38] LABS: TSH w/ Reflex to FT4 0.96 uIU/mL (0.47-4.68)
[2024-10-18 10:41] LABS: Ferritin 128 ng/mL (6-137)
[2024-10-19 07:13] LABS: Thyroid Peroxidase Antibodies 12 IU/mL (0-34)
[2024-10-19 18:36] LABS: Anti Thyroglobulin Antibody <1.0 IU/mL (0.0-0.9)
== END ==
PROVIDERS: PCP Family Medicine; Referring Provider Family Medicine; Visit Provider Family Medicine
DX: R79.82 Elevated C-reactive protein (CRP) (principal); E66.3 Overweight; L65.8 Other specified nonscarring hair loss; E28.2 Polycystic ovarian syndrome; R73.03 Prediabetes; R14.0 Abdominal distension (gaseous); E55.9 Vitamin D deficiency, unspecified; R53.83 Other fatigue; G47.00 Insomnia, unspecified
CPT/HCPCS: 36415; 80053; 80061; 82728; 83036; 83525; 84443; 85025; 86376; 86800

== ENCOUNTER 2024-12-01 19:31 | Emergency (ER) | payer OTHER, SELFPAY ==
[2024-12-01 19:57] VITALS: BP 143/96; PULSE 131; RESP 18; TEMP 36.9; O2SAT 95; BMI 28.2
--- NOTE | 2024-12-01 20:04 | DI.RAD.S_ITS ---
PROCEDURE: XR FOOT RT MIN 3V INDICATIONS: pain TECHNIQUE: 3 views of the foot were acquired. COMPARISON: None. FINDINGS: Bones: No acute fractures or dislocations. There are remote, healed fractures of the distal tibia and distal fibula. No suspicious bony lesions. The talar dome demonstrates no mark abnormality. Soft tissues: No tibiotalar joint effusion. Achilles tendon appears normal. IMPRESSION: No acute plain film abnormality is seen. Remote, healed fractures can be seen of the distal tibia and distal fibula. Dictated by: Neel Early M.D. on 12/01/2024 at 19:57 Approved by: Neel Early M.D. on 12/01/2024 at 19:58
== END 2024-12-02 00:44 | disposition left against medical advice (07) ==
PROVIDERS: Emergency Provider Emergency Medicine; PCP Family Medicine
DX: S99.921A Unspecified injury of right foot, initial encounter (principal); Z87.81 Personal history of (healed) traumatic fracture
CPT/HCPCS: 73630; 99281

== ENCOUNTER → 2025-02-05 08:33 | Outpatient (CLI) | payer OTHER, SELFPAY ==
[2025-02-05 08:59] LABS: Add Manual Diff / Slide Review NO; Basophils Absolute Auto 100 /uL (0-100); Basophils Percent Auto 0.8 % (0-2); Eosinophils Absolute Auto 200 /uL (0-450); Eosinophils Percent Auto 2.4 % (2-4); Hematocrit 44.5 % (36-46); Hemoglobin 15.1 g/dL (12.0-16.0); Lymphocytes Absolute Auto 2000 /uL (1100-4500); Lymphocytes Percent Auto 22.5 % (25-40); Mean Corpuscular HGB Conc 33.9 % (30-36); Mean Corpuscular Hemoglobin 31.5 PG (26-34); Mean Corpuscular Volume 92.9 fL (80-100); Monocytes Absolute Auto 700 /uL (0-900); Monocytes Percent Auto 7.8 % (3-14); Neutrophils Absolute Auto 6000 /uL (1500-7000); Neutrophils Percent Auto 66.5 % (50-75); Platelet Count 284 X10^3/uL (150-400); Red Blood Cell Count 4.79 X10^6/uL (4.0-5.2); Red Cell Distribution Width 12.8 % (11.6-14.8)
[2025-02-05 09:36] LABS: Alanine Aminotransferase 22 IU/L (<35); Albumin 4.3 g/dL (3.5-5.0); Albumin Globulin Ratio 1.4 (1.0-2.8); Alkaline Phosphatase 75 U/L (38-126); Aspartate Aminotransferase 24 IU/L (14-36); BUN Creatinine Ratio 15.7 (6-22); Bilirubin Total 0.5 mg/dL (0.2-1.3); Blood Urea Nitrogen 11 mg/dL (7-17); Calcium 9.3 mg/dL (8.4-10.2); Carbon Dioxide 28 mmol/L (22-32); Chloride 105 mmol/L (98-107); Estimated Glomerular Filt Rate > 60 mL/min (>60); Globulin 3.1 g/dL (1.7-4.1); Glucose 113 mg/dL (70-99); HEMOLYSIS < 15 (0-50); Potassium 4.4 mmol/L (3.4-5.1); Sodium 140 mmol/L (137-145); Total Protein 7.4 g/dL (6.3-8.2)
[2025-02-06 04:08] LABS: CRP, High Sensitivity 5.64 mg/L (0.00-3.00)
== END ==
PROVIDERS: PCP Family Medicine; Referring Provider Family Medicine; Visit Provider Family Medicine
DX: E28.2 Polycystic ovarian syndrome (principal); R73.03 Prediabetes; R79.82 Elevated C-reactive protein (CRP)
CPT/HCPCS: 36415; 80053; 85025; 86140

== ENCOUNTER → 2025-02-12 12:13 | Outpatient (CLI) | payer OTHER, SELFPAY ==
--- NOTE | 2025-02-12 12:14 | DI.US.S_ITS ---
PROCEDURE: US PELVIC COMPLETE INDICATIONS: Polycystic ovary syndrome, bloating per notes TECHNIQUE: Real-time scanning was performed of the pelvic organs, with image documentation. Additional endovaginal scanning was necessary due to incomplete visualization of the adnexal and endometrial structures by transabdominal scanning. COMPARISON: [facility], US, US PELVIC COMPLETE, 12/06/2022, 9:03. FINDINGS: Uterus: Uterus is anteverted and normal in size at 8.4 x 4.6 x 3.9 cm. The myometrium is heterogeneous. The endometrium echo complex measures 5 mm combined thickness. Mild anechoic fluid is noted within the endometrial canal. At least 2 leiomyomata are noted: Midline anterior intramuscular 1.9 x 1.7 x 1.3 cm. Midline posterior intramuscular 1.6 x 1.3 x 1.1 cm unchanged. Ovaries: The right ovary measures 2.3 x 1.7 x 1.7 cm, with a calculated ovarian volume of 3.3 cc. The left ovary measures 2.8 x 2.7 x 2.1 cm, with a calculated ovarian volume of 8.1 cc. The ovaries have a normal sonographic appearance. Less than 12 follicles can be seen in each ovary. No adnexal masses are seen. Other: No pathologic free abdominal or pelvic fluid. IMPRESSION: Mild nonspecific fluid in the endometrial canal. Leiomyomatous uterus as discussed above. We strive to produce accurate, complete, and clear reports of imaging services. To assist us in improving patient care, this report was composed using standard report templates and voice recognition software. Therefore, it may contain abnormal punctuation, insertions and/or omissions. Occasional wrong-word or sound-alike substitutions may occur. Though we review the report and make efforts to correct it, we do recommend that the report be read carefully in proper context to recognize any text inaccuracies. Dictated by: Jose Manuel Haley M.D. on 02/13/2025 at 9:01 Approved by: Jose Manuel Haley M.D. on 02/13/2025 at 9:05
== END ==
LOC: US 12:14
PROVIDERS: PCP Family Medicine; Referring Provider Family Medicine; Visit Provider Family Medicine
DX: E28.2 Polycystic ovarian syndrome (principal); R14.0 Abdominal distension (gaseous); D25.9 Leiomyoma of uterus, unspecified
CPT/HCPCS: 76830; 76856; 93975